=== PATIENT | male | born 2000 | race Two or more races ===

== ENCOUNTER 2019-10-27 13:09 | Emergency (ER) | payer MEDICAID ==
[~2019-10-27] VITALS: Ht 175.3 cm; Wt 54.4 kg
[2019-10-27 13:19] VITALS: BP 118/58
[2019-10-27] MEDS ORDERED: AZITHROMYCIN 500 MG TABLET PO ONE (14:30)
[2019-10-27] MEDS ORDERED: CEFTRIAXONE SODIUM 250 MG/VIAL IM ONE (14:30)
[2019-10-27] MEDS ORDERED: LIDOCAINE HCL/PF 1% 10 MG/ML 5ML VIAL IJ ONE (14:30)
[2019-10-30 19:06] LABS: NEISSERIA GONORRHOEAE NAA Positive (Negative)
== END 2019-10-27 15:00 | disposition home or self-care (01) ==
LOC: ER 13:34
DX: R36.9 Urethral discharge, unspecified (principal); Z20.2 Contact with and (suspected) exposure to infections with a predominantly sexual mode of transmission
CPT/HCPCS: 87491; 87591; 96372; 99283; J0696; J3490